=== PATIENT | female | born 1990 | race Caucasian/White ===

== ENCOUNTER → 2016-11-19 | Outpatient (REF) | payer BC ==
[2016-11-19 13:33] LABS: BASO % 0.3 % (0.0-1.0); EOS # 0.1 10^3/uL (0.0-0.50); IMMATURE GRANULOCYTE % 0.6 % (0-0); LYMPH # 1.8 10^3/uL (1.5-6.5); LYMPH % 14.5 % (24.0-44.0); MEAN CORPUSCULAR HEMOGLOBIN 32.4 pg (27.0-33.0); MEAN CORPUSCULAR HGB CONC 33.3 g/dl (32.0-36.5); MEAN CORPUSCULAR VOLUME 97.1 fl (80.0-96.0); MONO # 0.6 10^3/uL (0.0-0.8); MONO % 4.7 % (0.0-5.0); NEUTROPHILS # 9.8 10^3/uL (1.8-7.7); NEUTROPHILS % 78.9 % (36.0-66.0); PLATELET COUNT, AUTOMATED 267 10^3/uL (150-450); RED CELL DISTRIBUTION WIDTH 13.2 % (11.5-14.5); WHITE BLOOD COUNT 12.4 10^3/uL (4.0-10.0)
[2016-11-19 13:35] LABS: ADD MANUAL DIFFER NO; DIFF SLIDE NUMBER 223
[2016-11-19 13:42] LABS: HBsAg Prenatal NEGATIVE (NEGATIVE)
== END ==
LOC: M LABDRWAD 12:25
PROVIDERS: ATTEND Advanced Practice Midwife
DX: Z34.81 Encounter for supervision of other normal pregnancy, first trimester (principal)

== ENCOUNTER → 2016-11-22 | Outpatient (REF) | payer BC | LOC: M LAB REF 16:54 | PROVIDERS: ATTEND Advanced Practice Midwife | DX: Z34.81 Encounter for supervision of other normal pregnancy, first trimester (principal) ==

== ENCOUNTER → 2017-01-16 | Outpatient (REF) | payer BC | LOC: M LAB REF 13:02 | PROVIDERS: ATTEND Advanced Practice Midwife | DX: Z36.89 Encounter for other specified antenatal screening (principal); Z3A.00 Weeks of gestation of pregnancy not specified ==

== ENCOUNTER → 2017-01-24 | Outpatient (CLI) | payer BC ==
--- NOTE | 2017-01-24 16:25 | REP ---
OB ULTRASOUND: Real-time sonographic evaluation of the gravid uterus is performed. There is a single living intrauterine gestation. The estimated gestational age is 18 weeks 2 days with EDC 06/25/2017. Today's measurements indicate appropriate growth. BPD 42 mm = 18 weeks 5 days, 61st percentile HC 155 mm = 18 weeks 3 days, 54th percentile AC 140 mm = 19 weeks 3 days, 73rd percentile FL 26 mm = 17 weeks 6 days, 37th percentile HC/AC ratio 1.11 within normal range. Estimated weight 251 grams, 60th percentile. Cervix closed and measures 4.1 cm in length. heart rate 149 beats per minute. SEEN/GROSSLY UNREMARKABLE Lateral ventricles yes Posterior fossa yes Upper lip yes Four-chamber heart yes LVOT yes RVOT yes Stomach yes Cord insertion yes Three vessel cord yes Kidneys yes Bladder yes Spine yes position: Breech. Placenta: Anterior and grade 0 with no previa or abruption. Amniotic fluid: Within normal limits. Signed by Steve Chase MD 01/24/2017 04:58 P
== END ==
LOC: M RAD 13:58
PROVIDERS: ATTEND Advanced Practice Midwife
DX: Z36.2 Encounter for other antenatal screening follow-up (principal)

== ENCOUNTER → 2017-03-21 | Outpatient (CLI) | payer BC ==
[2017-03-21 10:13] LABS: HEMOGLOBIN 10.5 g/dl (12.0-16.0); MEAN CORPUSCULAR HEMOGLOBIN 32.5 pg (27.0-33.0); MEAN CORPUSCULAR HGB CONC 32.8 g/dl (32.0-36.5); MEAN CORPUSCULAR VOLUME 99.1 fl (80.0-96.0); PLATELET COUNT, AUTOMATED 369 10^3/uL (150-450); RED BLOOD COUNT 3.23 10^6/uL (4.00-5.40); RED CELL DISTRIBUTION WIDTH 12.6 % (11.5-14.5); WHITE BLOOD COUNT 15.7 10^3/uL (4.0-10.0)
[2017-03-21 10:18] LABS: GLUCOSE CHALLENGE TEST 1 HOUR 115 MG/DL (LESS THAN 140)
== END ==
LOC: M LAB 08:07
DX: Z36.89 Encounter for other specified antenatal screening (principal); Z3A.00 Weeks of gestation of pregnancy not specified
CPT/HCPCS: 82950

== ENCOUNTER → 2017-06-03 | Outpatient (REF) | payer BC | LOC: M LAB REF 16:50 | DX: Z34.83 Encounter for supervision of other normal pregnancy, third trimester (principal) | CPT/HCPCS: 87081; 87186 ==

== ENCOUNTER 2017-07-01 01:58 | Inpatient (IN) | payer BC ==
[2017-07-01] MEDS ORDERED: PENICILLIN G POTASSIUM 5 MU VIAL As Ordered (02:33)
[2017-07-01] MEDS ORDERED: ONDANSETRON 4MG/2ML VIAL (J2405) As Ordered ×4 (02:48→15:29)
[2017-07-01] MEDS: PENICILLIN G POTASSIUM IV 5 MU in D5W MINI-BAG PLUS 100 ML IV (02:49)
[2017-07-01 02:51] LABS: HEMOGLOBIN 8.8 g/dl (12.0-15.5); MEAN CORPUSCULAR HGB CONC 32.6 g/dl (32.0-36.5); MEAN CORPUSCULAR VOLUME 89.1 fl (80.0-96.0); PLATELET COUNT, AUTOMATED 453 10^3/uL (150-450); RED BLOOD COUNT 3.03 10^6/uL (4.00-5.40); RED CELL DISTRIBUTION WIDTH 14.1 % (11.5-14.5); WHITE BLOOD COUNT 15.5 10^3/uL (4.0-10.0)
[2017-07-01] MEDS: ONDANSETRON 4MG/2ML VIAL (J2405) IV ×2 (03:00→15:29)
[2017-07-01] MEDS ORDERED: FENTANYL 2MCG/ML ROPIVACAINE 0.2% IN 0.9% NACL 200ML IVBAG As Ordered (03:21)
[2017-07-01] MEDS ORDERED: EPIDURAL/PCA KEYS XX (03:40)
[2017-07-01] MEDS ORDERED: diphenhydrAMINE INJ 50MG/ML VIAL (J1200) IV (03:40)
[2017-07-01] MEDS ORDERED: FENTANYL/ROPIVACAINE/NACL BAG 200 ML EPIDURAL (03:40)
[2017-07-01] MEDS ORDERED: NALOXONE INJ 0.4 MG/1 ML VIAL (J2310) IV (03:40)
[2017-07-01] MEDS ORDERED: EPIDURAL COMMENT XX (03:40)
[2017-07-01] MEDS ORDERED: ONDANSETRON 4MG/2ML VIAL (J2405) IV ×3 (03:40→15:30)
[2017-07-01] MEDS ORDERED: REFRIGERATOR IV KEYS XX (03:40)
[2017-07-01] MEDS ORDERED: TERBUTALINE SULFATE 1 MG/ML VIAL (J3105) As Ordered (04:17)
[2017-07-01] MEDS: TERBUTALINE SULFATE 1 MG/ML VIAL (J3105) SC (04:26)
[2017-07-01] MEDS ORDERED: ePHEDrine SULFATE 25 MG/5 ML(5MG/ML) SYRINGE As Ordered ×2 (04:32→13:21)
[2017-07-01] MEDS: ePHEDrine SULFATE 25 MG/5 ML(5MG/ML) SYRINGE IV ×2 (05:55→06:37)
[2017-07-01] MEDS: OXYTOCIN DRIP 30 UNITS in APPROPRIATE DILUENT 1 EA IV ×2 (05:56→18:26)
[2017-07-01] MEDS: LACTATED RINGER'S 1000 ML IV ×2 (05:57→18:07)
[2017-07-01] MEDS: PENICILLIN G POTASSIUM IV 2.5 MU in APPROPRIATE DILUENT 1 EA IV (06:37)
[2017-07-01] MEDS: LR 1,000 ML IV ×6 (07:30→18:10)
[2017-07-01] MEDS ORDERED: ceFAZolin 2 GM/D5W 50 ML IV BAG (J0690 PER 500MG) As Ordered (09:41)
[2017-07-01] MEDS ORDERED: BICITRA 30ML SOLN UDC As Ordered (09:41)
[2017-07-01] MEDS ORDERED: MORPHINE PRES-FREE INJ 10 MG/10 ML VIAL (J2274) As Ordered (10:15)
[2017-07-01] MEDS ORDERED: OXYTOCIN INJ 10 UNITS/ML VIAL (J2590) As Ordered ×7 (10:15→13:17)
[2017-07-01] MEDS ORDERED: KETOROLAC 60 MG/2 ML VIAL (J1885) As Ordered (10:21)
[2017-07-01] MEDS ORDERED: dexameTHASONE 4 MG/ML 1ML VIAL (J1100) As Ordered (10:21)
[2017-07-01] MEDS ORDERED: fentaNYL 100 MCG/2 ML INJECTION (J3010) As Ordered (10:26)
[2017-07-01] MEDS ORDERED: SODIUM BICARBONATE 8.4% INJ 50MEQ 50 ML VIAL As Ordered (10:27)
[2017-07-01] MEDS ORDERED: LIDOCAINE 2% W/EPIN INJ 20ML **PRES FREE As Ordered (10:27)
[2017-07-01 10:48] LABS: CORD GAS ABE V -2.6; CORD GAS HCO3 V 24.3 MEQ/L; CORD GAS PH V 7.313 UNITS; CORD GAS PO2 V 29.3 mmHg; CORD GAS SBC V 21.5 MEQ/L; CORD GAS TCO2 V 25.8 MEQ/L
[2017-07-01 10:51] LABS: CORD GAS ABE A -4.8; CORD GAS HCO3 A 24.2 MEQ/L; CORD GAS O2 SAT A 45.5 %; CORD GAS PCO2 A 58.6 mmHg; CORD GAS PH A 7.233 UNITS; CORD GAS PO2 A 20.2 mmHg; CORD GAS SBC A 19.1 MEQ/L
[2017-07-01] MEDS ORDERED: PHENYLephrine HCL 500 MCG/5 ML (100MCG/ML) SYRINGE (J2370) As Ordered ×4 (11:00→13:21)
[2017-07-01] MEDS ORDERED: miSOPROStol 200 MCG TAB (S0191) As Ordered (11:21)
[2017-07-01] MEDS ORDERED: METOCLOPRAMIDE INJ 10MG/2ML VIAL (J2765) IV (11:30)
[2017-07-01] MEDS ORDERED: fentaNYL 100 MCG/2 ML INJECTION (J3010) IV ×2 (11:30→15:30)
[2017-07-01] MEDS ORDERED: OXYTOCIN 30 UNITS IN 0.9% NaCl 500ML IV BAG (J2590) As Ordered (11:37)
[2017-07-01 11:42] LABS: IMMEDIATE SPIN CROSSMATCH 1 4
[2017-07-01 11:42] LABS: IMMEDIATE SPIN CROSSMATCH 1
[2017-07-01] MEDS: ceFAZolin 2 GM/D5W 50 ML IV BAG (J0690 PER 500MG) As Ordered (12:00)
[2017-07-01] MEDS ORDERED: CARBOPROST TROMETHAMINE 250 MCG/ML AMP As Ordered ×2 (12:02→12:50)
[2017-07-01] MEDS ORDERED: METHYLERGONOVINE MALEATE 0.2 MG/ML VIAL (J2210) As Ordered (12:02)
[2017-07-01] MEDS: CARBOPROST TROMETHAMINE 250 MCG/ML AMP As Ordered (12:21)
[2017-07-01 12:26] LABS: TYPE AND SCREEN 1
[2017-07-01] MEDS: UNASYN 1.5 GM VIAL As Ordered (12:26)
[2017-07-01] MEDS: METHYLERGONOVINE MALEATE 0.2 MG/ML VIAL (J2210) As Ordered (12:35)
[2017-07-01] MEDS: METHYLERGONOVINE MALEATE 0.2 MG/ML VIAL (J2210) IM (12:35)
[2017-07-01 12:48] LABS: HEMATOCRIT 18.6 % (36.0-47.0); MEAN CORPUSCULAR HEMOGLOBIN 29.7 pg (27.0-33.0); MEAN CORPUSCULAR HGB CONC 32.3 g/dl (32.0-36.5); MEAN CORPUSCULAR VOLUME 92.1 fl (80.0-96.0); PLATELET COUNT, AUTOMATED 305 10^3/uL (150-450); RED BLOOD COUNT 2.02 10^6/uL (4.00-5.40); RED CELL DISTRIBUTION WIDTH 14.4 % (11.5-14.5); WHITE BLOOD COUNT 20.3 10^3/uL (4.0-10.0)
[2017-07-01 12:50] LABS: INR 1.05; PARTIAL THROMBOPLASTIN TIME 24.8 SECONDS (26.8-37.9); PROTHROMBIN TIME 13.8 SECONDS (12.4-14.5)
[2017-07-01] MEDS ORDERED: fentaNYL 250 MCG/5 ML INJECTION (J3010) As Ordered (13:00)
[2017-07-01] MEDS ORDERED: PROPOFOL 200 MG/20 ML VIAL As Ordered (13:00)
[2017-07-01] MEDS ORDERED: ROCURONIUM BROMIDE 50 MG/5 ML VIAL As Ordered (13:00)
[2017-07-01] MEDS ORDERED: SUCCINYLCHOLINE 100 MG/5 ML SYRINGE (J0330) As Ordered (13:00)
[2017-07-01] MEDS ORDERED: MIDAZOLAM INJ 2 MG/2 ML VIAL (J2250) As Ordered ×2 (13:00→13:56)
[2017-07-01] MEDS ORDERED: LIDOCAINE 2% INJ 100 MG/5 ML SDV (FOR ANES.) As Ordered (13:00)
[2017-07-01] MEDS ORDERED: VASOPRESSIN INJ 20 UNITS/ML VIAL As Ordered (13:00)
[2017-07-01] MEDS ORDERED: TRANEXAMIC ACID 100 MG/ML 10ML VIAL As Ordered (13:07)
[2017-07-01] MEDS ORDERED: GLYCOPYRROLATE INJ 0.2 MG/ML 2 ML VIAL As Ordered ×2 (13:36)
[2017-07-01] MEDS ORDERED: NEOSTIGMINE 10 MG/10 ML VIAL (J2710) As Ordered (13:36)
[2017-07-01 14:00] LABS: iSTAT CA++ 4.2 MG/DL (4.5-5.3)
[2017-07-01] MEDS ORDERED: MEPERIDINE INJ 25 MG/ML VIAL (J2175) As Ordered (15:09)
[2017-07-01] MEDS: MEPERIDINE INJ 25 MG/ML VIAL (J2175) IV ×2 (15:09→15:20)
[2017-07-01] MEDS ORDERED: MEPERIDINE INJ 25 MG/ML VIAL (J2175) IV (15:30)
[2017-07-01] MEDS ORDERED: PERCOCET 5MG/325MG TAB PO (16:00)
[2017-07-01] MEDS ORDERED: METOCLOPRAMIDE INJ 10MG/2ML VIAL (J2765) As Ordered (16:07)
[2017-07-01] MEDS: METOCLOPRAMIDE INJ 10MG/2ML VIAL (J2765) IV (16:07)
[2017-07-01] MEDS ORDERED: MORPHINE 4 MG/ML 1ML VIAL/SYRINGE (J2270) IV (16:15)
[2017-07-01] MEDS ORDERED: PROMETHAZINE INJ 25 MG/ML VIAL (J2550) IV (16:15)
[2017-07-01 16:23] LABS: HEMATOCRIT 27.2 % (36.0-47.0); HEMOGLOBIN 9.4 g/dl (12.0-15.5); MEAN CORPUSCULAR HEMOGLOBIN 31.4 pg (27.0-33.0); MEAN CORPUSCULAR HGB CONC 34.6 g/dl (32.0-36.5); PLATELET COUNT, AUTOMATED 150 10^3/uL (150-450); RED BLOOD COUNT 2.99 10^6/uL (4.00-5.40); RED CELL DISTRIBUTION WIDTH 13.5 % (11.5-14.5)
[2017-07-01 16:34] LABS: INR 1.13; PROTHROMBIN TIME 14.7 SECONDS (12.4-14.5)
[2017-07-01 16:35] LABS: FIBRINOGEN 264 MG/DL (221-452)
[2017-07-01 16:39] LABS: POS COUNT POS FLAG
[2017-07-01 16:41] LABS: WHITE BLOOD COUNT 37.8 10^3/uL (4.0-10.0)
[2017-07-01] MEDS: BICITRA 30ML SOLN UDC PO (18:08)
[2017-07-01] MEDS: AMPICILLIN SOD/SULBACTAM SOD 3 GM in D5W MINI-BAG PLUS 100 ML IV ×2 (18:08→18:30)
[2017-07-01] MEDS: CARBOPROST TROMETHAMINE 250 MCG/ML AMP IM (18:09)
[2017-07-01] MEDS: miSOPROStol 200 MCG TAB (S0191) PR (18:09)
[2017-07-01 18:27] LABS: HEMATOCRIT 21.5 % (36.0-47.0); HEMOGLOBIN 7.6 g/dl (12.0-15.5); MEAN CORPUSCULAR HEMOGLOBIN 31.8 pg (27.0-33.0); MEAN CORPUSCULAR HGB CONC 35.3 g/dl (32.0-36.5); PLATELET COUNT, AUTOMATED 125 10^3/uL (150-450); RED BLOOD COUNT 2.39 10^6/uL (4.00-5.40); RED CELL DISTRIBUTION WIDTH 13.5 % (11.5-14.5); WHITE BLOOD COUNT 29.7 10^3/uL (4.0-10.0)
[2017-07-01] MEDS: METHYLERGONOVINE MALEATE 0.2 MG TAB PO (18:27)
[2017-07-01] MEDS: ACETAMINOPHEN 500 MG TAB PO (19:30)
[2017-07-01] MEDS: diphenhydrAMINE INJ 50MG/ML VIAL (J1200) IV (19:30)
[2017-07-01 21:31] LABS: IMMEDIATE SPIN CROSSMATCH 1 4
[2017-07-01] MEDS: DOCUSATE SODIUM 100 MG CAP PO (21:52)
[2017-07-02] MEDS: LR 1,000 ML IV (00:16)
[2017-07-02] MEDS: AMPICILLIN SOD/SULBACTAM SOD 3 GM in D5W MINI-BAG PLUS 100 ML IV ×4 (00:18→18:06)
[2017-07-02] MEDS: METHYLERGONOVINE MALEATE 0.2 MG TAB PO ×4 (00:19→18:06)
[2017-07-02] MEDS: PERCOCET 5MG/325MG TAB PO ×6 (03:32→23:01)
[2017-07-02 05:00] LABS: HEMATOCRIT 25.4 % (36.0-47.0); HEMOGLOBIN 8.9 g/dl (12.0-15.5); MEAN CORPUSCULAR HEMOGLOBIN 30.3 pg (27.0-33.0); MEAN CORPUSCULAR VOLUME 86.4 fl (80.0-96.0); PLATELET COUNT, AUTOMATED 120 10^3/uL (150-450); RED BLOOD COUNT 2.94 10^6/uL (4.00-5.40); RED CELL DISTRIBUTION WIDTH 13.9 % (11.5-14.5); WHITE BLOOD COUNT 24.7 10^3/uL (4.0-10.0)
[2017-07-02 08:26] LABS: ALKALINE PHOSPHATASE 94 U/L (45-117); ALT/SGPT 8 U/L (12-78); ANION GAP 8 MEQ/L (8-16); AST/SGOT 36 U/L (7-37); BILIRUBIN,TOTAL 0.3 MG/DL (0.2-1.0); BLOOD UREA NITROGEN 5 MG/DL (7-18); CALCIUM LEVEL 6.9 MG/DL (8.5-10.1); CARBON DIOXIDE LEVEL 24 MEQ/L (21-32); CHLORIDE LEVEL 107 MEQ/L (98-107); CREATININE FOR GFR 0.66 MG/DL (0.55-1.30); GLOMERULAR FILTRATION RATE > 60.0 (>60); GLUCOSE, FASTING 90 MG/DL (70-100); POTASSIUM SERUM 4.1 MEQ/L (3.5-5.1); SODIUM LEVEL 139 MEQ/L (136-145)
[2017-07-02 08:27] LABS: ALBUMIN 1.6 GM/DL (3.2-5.2); TOTAL PROTEIN 3.9 GM/DL (6.4-8.2)
[2017-07-02] MEDS: DOCUSATE SODIUM 100 MG CAP PO ×2 (08:47→20:34)
[2017-07-02] MEDS ORDERED: SLF 3 ML SYR IV (17:45)
[2017-07-02] MEDS: SLF 3 ML SYR IV (20:34)
[2017-07-02] MEDS: diphenhydrAMINE INJ 50MG/ML VIAL (J1200) IV (23:01)
[2017-07-03] MEDS: AMPICILLIN SOD/SULBACTAM SOD 3 GM in D5W MINI-BAG PLUS 100 ML IV ×2 (00:11→06:21)
[2017-07-03] MEDS: PERCOCET 5MG/325MG TAB PO ×5 (04:40→22:46)
[2017-07-03] MEDS: SLF 3 ML SYR IV (06:21)
[2017-07-03 07:10] LABS: HEMATOCRIT 22.1 % (36.0-47.0); HEMOGLOBIN 7.7 g/dl (12.0-15.5); MEAN CORPUSCULAR HEMOGLOBIN 30.7 pg (27.0-33.0); MEAN CORPUSCULAR HGB CONC 34.8 g/dl (32.0-36.5); PLATELET COUNT, AUTOMATED 142 10^3/uL (150-450); RED BLOOD COUNT 2.51 10^6/uL (4.00-5.40); RED CELL DISTRIBUTION WIDTH 14.6 % (11.5-14.5); WHITE BLOOD COUNT 21.6 10^3/uL (4.0-10.0)
[2017-07-03] MEDS: DOCUSATE SODIUM 100 MG CAP PO ×2 (08:33→20:33)
[2017-07-03 12:45] LABS: iSTAT CA++ 4.3 MG/DL (4.5-5.3)
[2017-07-04] MEDS: PERCOCET 5MG/325MG TAB PO ×3 (03:00→12:32)
[2017-07-04 07:09] LABS: HEMATOCRIT 23.8 % (36.0-47.0); HEMOGLOBIN 8.2 g/dl (12.0-15.5); MEAN CORPUSCULAR HEMOGLOBIN 30.9 pg (27.0-33.0); MEAN CORPUSCULAR HGB CONC 34.5 g/dl (32.0-36.5); MEAN CORPUSCULAR VOLUME 89.8 fl (80.0-96.0); PLATELET COUNT, AUTOMATED 224 10^3/uL (150-450); RED BLOOD COUNT 2.65 10^6/uL (4.00-5.40); RED CELL DISTRIBUTION WIDTH 14.6 % (11.5-14.5); WHITE BLOOD COUNT 15.5 10^3/uL (4.0-10.0)
[2017-07-04] MEDS: DOCUSATE SODIUM 100 MG CAP PO (08:24)
[2017-07-04] MEDS: ADACEL/BOOSTRIX VACCINE (DIPHTH/PERTUSS/ACELL/TETANUS)0.5ML SYR (90715) IM (08:25)
== END 2017-07-04 15:00 | disposition home or self-care (01) | DRG 540 ==
LOC: M LDO 01:58 → M OBS 07-03 01:44 → M LDI 02:31 → M OBS 15:00 → M ICU 17:00
PROVIDERS: Specialist
PROC: 10D00Z1 Extraction of Products of Conception, Low, Open Approach (ICD-10-PCS; principal; 2017-07-01 10:00)
PROC: 0W3N0ZZ Control Bleeding in Female Perineum, Open Approach (ICD-10-PCS; 2017-07-01 10:00)
PROC: 0UH Female Reproductive System, Insertion (ICD-10-PCS; 2017-07-01 10:00)
PROC: 30253N1 (ICD-10-PCS; 2017-07-01 10:00)
PROC: 30253K1 (ICD-10-PCS; 2017-07-01 10:00)
DX: O48.0 Post-term pregnancy (principal); O72.1 Other immediate postpartum hemorrhage; Z3A.40 40 weeks gestation of pregnancy; O99.824 Streptococcus B carrier state complicating childbirth; O76 Abnormality in fetal heart rate and rhythm complicating labor and delivery; Z37.0 Single live birth

== ENCOUNTER → 2018-03-11 | Outpatient (CLI) | payer BC ==
[~2018-03-11] MED LIST: COLA100C5 PO; OXYC1TAB23 PO
[2018-03-11 19:55] LABS: BASO % 0.4 % (0.0-1.0); EOS # 0.1 10^3/uL (0.0-0.50); EOS % 1.1 % (0.0-3.0); HEMATOCRIT 38.2 % (36.0-47.0); HEMOGLOBIN 12.4 g/dl (12.0-15.5); LYMPH # 2.6 10^3/uL (1.5-4.5); LYMPH % 25.8 % (24.0-44.0); MEAN CORPUSCULAR HEMOGLOBIN 30.5 pg (27.0-33.0); MEAN CORPUSCULAR HGB CONC 32.5 g/dl (32.0-36.5); MEAN CORPUSCULAR VOLUME 94.1 fl (80.0-96.0); MONO # 0.6 10^3/uL (0.0-0.8); NEUTROPHILS # 6.7 10^3/uL (1.8-7.7); NEUTROPHILS % 66.3 % (36.0-66.0); PLATELET COUNT, AUTOMATED 314 10^3/uL (150-450); RED BLOOD COUNT 4.06 10^6/uL (4.00-5.40); WHITE BLOOD COUNT 10.1 10^3/uL (4.0-10.0)
[2018-03-11 20:07] LABS: FREE T4 0.94 NG/DL (0.76-1.46); THYROID STIMULATING HORMONE 1.14 uIU/ML (0.358-3.740)
== END ==
LOC: M LABDRWAD 13:45
PROVIDERS: ATTEND Physician Assistant Medical
DX: R53.83 Other fatigue (principal)

== ENCOUNTER → 2018-06-10 | Outpatient (CLI) | payer BC, MEDICAID ==
[2018-06-10 20:12] LABS: BASO % 0.3 % (0.0-1.0); EOS # 0.1 10^3/uL (0.0-0.50); EOS % 1.1 % (0.0-3.0); HEMATOCRIT 37.5 % (36.0-47.0); HEMOGLOBIN 12.2 g/dl (12.0-15.5); LYMPH # 2.8 10^3/uL (1.5-4.5); LYMPH % 29.1 % (24.0-44.0); MEAN CORPUSCULAR HEMOGLOBIN 30.4 pg (27.0-33.0); MEAN CORPUSCULAR HGB CONC 32.5 g/dl (32.0-36.5); MEAN CORPUSCULAR VOLUME 93.5 fl (80.0-96.0); MONO # 0.6 10^3/uL (0.0-0.8); MONO % 6.4 % (0.0-5.0); NEUTROPHILS # 6.1 10^3/uL (1.8-7.7); NEUTROPHILS % 62.9 % (36.0-66.0); PLATELET COUNT, AUTOMATED 285 10^3/uL (150-450); RED BLOOD COUNT 4.01 10^6/uL (4.00-5.40); WHITE BLOOD COUNT 9.7 10^3/uL (4.0-10.0)
[2018-06-10 22:01] LABS: CHLAMYDIA DNA AMPLIFICATION NEGATIVE (NEGATIVE); GC DNA AMPLIFICATION NEGATIVE (NEGATIVE)
[2018-06-11 13:22] LABS: HEPATITIS C VIRUS ABY INDEX < 0.0 INDEX (<0.8); HIV 1&2 SCREEN CENTAUR NEGATIVE (NEGATIVE); RUBELLA IgG QUALITATIVE IMMUNE (IMMUNE)
== END ==
LOC: M LABDRWAD 17:25
PROVIDERS: ATTEND Advanced Practice Midwife
DX: Z34.81 Encounter for supervision of other normal pregnancy, first trimester (principal); Z3A.10 10 weeks gestation of pregnancy; Z36.89 Encounter for other specified antenatal screening

== ENCOUNTER → 2018-08-04 | Outpatient (CLI) | payer MEDICAID, OTHER ==
--- NOTE | 2018-08-04 10:14 | REP ---
Clinical: Anatomical evaluation. Comparison: None . Findings: Examination demonstrates a single live intrauterine in variable presentation. motion is identified by technologist. Placenta is noted posterior and grade zero without evidence for placenta previa or abruption. Amniotic fluid volume is normal. Cervix measures 3.5 cm in length and appears closed. No evidence for nuchal cord. Gestational age by LMP 20 weeks 4 days with JJ 12/18/2018 . Gestational age by current measurements 20 weeks 2 days with JJ 12/20/2018 . FHR equals 146 beats per minute. BPD 4.6 cm 20 weeks 0 days HC 16.7 cm 19 weeks 3 days AC 15.7 cm 20 weeks 6 days FL 3.2 cm 20 weeks 0 days HL 3.0 cm 20 weeks 0 days HC/AC ratio 1.06 Estimated weight 348 grams ( 38 percentile). Anatomical assessment demonstrates normal structures including cranium, choroid plexus, cavum, cerebellum/posterior fossa, facial features, lungs, four-chamber heart/ventricular outflow tracts, diaphragm, stomach, cord insertion/three-vessel cord, kidneys/bladder, spine, and extremities. Impression: Single live intrauterine in variable presentation demonstrating appropriate interval growth. Anatomical assessment is complete and normal. No gross abnormalities are identified. Electronically Signed by Jamison Taylor MD 08/04/2018 10:04 A
== END ==
LOC: M RAD 08:49
PROVIDERS: ATTEND Advanced Practice Midwife
DX: Z34.82 Encounter for supervision of other normal pregnancy, second trimester (principal); Z3A.20 20 weeks gestation of pregnancy

== ENCOUNTER → 2018-09-09 | Outpatient (CLI) | payer OTHER ==
[2018-09-09 11:23] LABS: BASO % 0.2 % (0.0-1.0); EOS # 0.1 10^3/uL (0.0-0.50); EOS % 0.7 % (0.0-3.0); HEMATOCRIT 29.7 % (36.0-47.0); HEMOGLOBIN 9.7 g/dl (12.0-15.5); LYMPH # 1.9 10^3/uL (1.5-4.5); LYMPH % 14.2 % (24.0-44.0); MEAN CORPUSCULAR HEMOGLOBIN 31.7 pg (27.0-33.0); MEAN CORPUSCULAR HGB CONC 32.7 g/dl (32.0-36.5); MEAN CORPUSCULAR VOLUME 97.1 fl (80.0-96.0); MONO # 0.5 10^3/uL (0.0-0.8); MONO % 3.6 % (0.0-5.0); NEUTROPHILS # 10.8 10^3/uL (1.8-7.7); NEUTROPHILS % 80.5 % (36.0-66.0); PLATELET COUNT, AUTOMATED 305 10^3/uL (150-450); RED BLOOD COUNT 3.06 10^6/uL (4.00-5.40); WHITE BLOOD COUNT 13.4 10^3/uL (4.0-10.0)
== END ==
LOC: M LAB 09:51
PROVIDERS: ATTEND Specialist
DX: Z34.82 Encounter for supervision of other normal pregnancy, second trimester (principal)

== ENCOUNTER → 2018-11-17 | Outpatient (REF) | payer OTHER ==
[~2018-11-17] MED LIST changes: +DOCU100C16 PO; +IBUP80TA PO; +IRON65TA2 PO; +PERCOCET PO; +PREN1TAB18 PO
== END ==
LOC: M LAB REF 17:14
PROVIDERS: ATTEND Advanced Practice Midwife
DX: Z36.85 Encounter for antenatal screening for Streptococcus B (principal); O34.219 Maternal care for unspecified type scar from previous cesarean delivery; Z3A.00 Weeks of gestation of pregnancy not specified

== ENCOUNTER → 2018-11-20 | Outpatient (REF) | payer OTHER ==
[~2018-11-20] MED LIST changes: -DOCU100C16 PO; -IBUP80TA PO; -PERCOCET PO
[2018-11-20 17:57] LABS: HEMATOCRIT 29.6 % (36.0-47.0); HEMOGLOBIN 9.5 g/dl (12.0-15.5); MEAN CORPUSCULAR HEMOGLOBIN 30.9 pg (27.0-33.0); MEAN CORPUSCULAR HGB CONC 32.1 g/dl (32.0-36.5); MEAN CORPUSCULAR VOLUME 96.4 fl (80.0-96.0); PLATELET COUNT, AUTOMATED 306 10^3/uL (150-450); RED BLOOD COUNT 3.07 10^6/uL (4.00-5.40); WHITE BLOOD COUNT 16.4 10^3/uL (4.0-10.0)
== END ==
LOC: M LABDRWAD 17:25
PROVIDERS: ATTEND Advanced Practice Midwife
DX: O34.219 Maternal care for unspecified type scar from previous cesarean delivery (principal); Z3A.00 Weeks of gestation of pregnancy not specified

== ENCOUNTER 2018-12-08 05:42 | Inpatient (IN) | payer BC, OTHER ==
[2018-12-08] VITALS (7 sets, daily range): BP systolic 103–125; BP diastolic 51–66
[~2018-12-08] VITALS: Ht 157.5 cm; Wt 62.4 kg
[2018-12-08] MEDS ORDERED: LR 1,000 ML IV ONE (06:00)
[2018-12-08] MEDS ORDERED: ceFAZolin SOD 2 GM in IV 1 EA IV ONE (06:00)
[2018-12-08] MEDS ORDERED: LR 1,000 ML IV SCH (06:00)
[2018-12-08] MEDS ORDERED: BICITRA 30ML SOLN UDC PO ONE (06:00)
[2018-12-08 06:45] LABS: HEMATOCRIT 29.4 % (36.0-47.0); HEMOGLOBIN 9.5 g/dl (12.0-15.5); MEAN CORPUSCULAR HEMOGLOBIN 29.5 pg (27.0-33.0); MEAN CORPUSCULAR HGB CONC 32.3 g/dl (32.0-36.5); MEAN CORPUSCULAR VOLUME 91.3 fl (80.0-96.0); PLATELET COUNT, AUTOMATED 343 10^3/uL (150-450); RED BLOOD COUNT 3.22 10^6/uL (4.00-5.40); WHITE BLOOD COUNT 14.4 10^3/uL (4.0-10.0)
[2018-12-08] MEDS ORDERED: OXYTOCIN INJ 10 UNITS/ML VIAL (J2590) As Ordered ONE (07:15)
[2018-12-08] MEDS ORDERED: MORPHINE PRES-FREE INJ 10 MG/10 ML VIAL (J2274) As Ordered ONE (07:18)
[2018-12-08] MEDS ORDERED: NALBUPHINE HCL 10 MG/ML AMP (J2300) IV PRN (07:42)
[2018-12-08] MEDS ORDERED: METOCLOPRAMIDE INJ 10MG/2ML VIAL (J2765) IV PRN ×2 (07:42→09:30)
[2018-12-08] MEDS ORDERED: diphenhydrAMINE INJ 50MG/ML VIAL (J1200) IV PRN (07:42)
[2018-12-08] MEDS ORDERED: ONDANSETRON 4MG/2ML VIAL (J2405) IV PRN ×2 (07:42→09:30)
[2018-12-08] MEDS ORDERED: NALOXONE INJ 0.4 MG/1 ML VIAL (J2310) IV PRN ×2 (07:42)
[2018-12-08] MEDS ORDERED: PHENYLephrine HCL 500 MCG/5 ML (100MCG/ML) SYRINGE (J2370) As Ordered ONE ×2 (07:48→08:02)
[2018-12-08] MEDS ORDERED: ONDANSETRON 4MG/2ML VIAL (J2405) As Ordered ONE (07:48)
[2018-12-08] MEDS ORDERED: KETOROLAC 60 MG/2 ML VIAL (J1885) As Ordered ONE (07:48)
[2018-12-08] MEDS ORDERED: miSOPROStol 200 MCG TAB (S0191) As Ordered ONE (08:08)
[2018-12-08] MEDS ORDERED: MEPERIDINE INJ 25 MG/ML VIAL (J2175) As Ordered ONE ×2 (09:24→09:48)
[2018-12-08] MEDS: MEPERIDINE INJ 25 MG/ML VIAL (J2175) IV PRN ×2 (09:27→09:51)
[2018-12-08] MEDS ORDERED: KETOROLAC 30 MG/ML VIAL (J1885) IV PRN (09:30)
[2018-12-08] MEDS ORDERED: HYDROMORPHONE HCL 0.5 MG/ 0.5 ML SYRINGE (J1170 PER 1) IV PRN (09:30)
[2018-12-08] MEDS ORDERED: PERCOCET 5MG/325MG TAB PO PRN ×2 (09:30→09:45)
[2018-12-08] MEDS ORDERED: fentaNYL 100 MCG/2 ML INJECTION (J3010) IV PRN (09:30)
[2018-12-08] MEDS: LR 1,000 ML IV SCH ×2 (09:39→16:19)
[2018-12-08] MEDS ORDERED: OXYTOCIN DRIP 30 UNITS in IV 1 EA IV SCH (09:39)
[2018-12-08] MEDS ORDERED: MEASLES,MUMPS,RUBELLA VACCINE INJ (MMR-II) (90707) SC SCH (09:45)
[2018-12-08] MEDS ORDERED: RHOGAM 300 MCG (1500 IU) INJ (J2790) IM SCH (09:45)
[2018-12-08] MEDS ORDERED: MOM 30ML SUSPENSION UDC PO PRN (09:45)
[2018-12-08] MEDS ORDERED: OXYTOCIN 30 UNITS IN 0.9% NaCl 500ML IV BAG (J2590) As Ordered ONE (10:19)
--- NOTE | 2018-12-08 10:20 | RO ---
DATE OF PROCEDURE: 12/08/2018 PREOPERATIVE DIAGNOSES: 1. History of primary section for repeat section. 2. Intrauterine at 39 weeks. POSTOPERATIVE DIAGNOSES: 1. History of primary section for repeat section. 2. Intrauterine at 39 weeks. PROCEDURE PERFORMED: Repeat section. SURGEON: Xenia Trujillo MD TRANSPORTATION MECHANIC: Kelsey Seymour CNM ANESTHESIA: Spinal. ESTIMATED BLOOD LOSS: 500 mL. INTRAVENOUS FLUIDS: 800 mL of lactated Ringer solution. URINE OUTPUT: 100 mL. PREOPERATIVE ANTIBIOTICS: 2 grams of Ancef. OPERATIVE FINDINGS: Live born female infant. score 9 and 9. Weight was 6 pounds 11 ounces or 3020 grams. DESCRIPTION OF OPERATION: After informed consent was obtained and written consent was reviewed, the patient brought to the operating room where spinal anesthesia was placed. She was then placed in supine position with a left lateral tilt. Valle catheter was placed and set to gravity. She was then prepped and draped in a normal sterile fashion. A time-out in operating room was then performed identifying the patient, procedure to be performed, as well as drug allergies. A Pfannenstiel skin incision was then made along the previous skin incision. This was carried down to underlying rectus fascia. The fascia was then scored and this was extended bilaterally. The fascia was then dissected off the underlying rectus muscles both superiorly, inferiorly. The rectus muscles were then in midline. Peritoneum was then entered sharply. The vesicouterine peritoneum was then identified. It was tented and excised to create a bladder flap. The bladder blade was then placed to retract back the bladder. A curvilinear incision was then made along the lower uterine segment. Amniotomy was then performed productive of clear fluid. The head was brought to level of incision atraumatically and this was delivered along with shoulders and corpus. The cord was clamped times two and was cut and was taken to the warmer with a good cry. The placenta was then delivered grossly intact. The uterus was then exteriorized and cleared of all clots and debris. Uterine incision was then closed in two layers using #0 Vicryl first in a running locking fashion followed by a second layer for imbrication in a running nonlocking fashion. [id number] stitch placed for hemostasis. The abdomen was then suctioned. The uterus was returned to patient's abdomen. It was reinspected and noted to be hemostatic. The anterior peritoneum was then reapproximated with #3-0 Vicryl. Rectus muscles were reapproximated with #3-0 Vicryl. The fascia was closed with #0 Vicryl in a running nonlocking fashion. The subcutaneous tissue was then suctioned and irrigated. Subcutaneous tissue was reapproximated #3-0 Vicryl. Several subdermal stitches placed with #3-0 Vicryl and the skin was closed with #4-0 Monocryl in subcuticular fashion. Incision was then clean and dry and was dressed. The patient was then taken to recovery in stable condition. Counts correct. Kelsey Seymour my funeral home assistant played an essential role during surgery. She assisted with tissue identification, retraction, delivery of the , as well as wound closure.
[2018-12-08] MEDS ORDERED: miSOPROStol 200 MCG TAB (S0191) PR ONE (10:30)
[2018-12-08] MEDS: KETOROLAC 30 MG/ML VIAL (J1885) IV SCH ×2 (16:20→20:39)
[2018-12-08] MEDS: PERCOCET 5MG/325MG TAB PO PRN ×2 (16:28→20:38)
[2018-12-08] MEDS: DOCUSATE SODIUM 100 MG CAP PO SCH (20:38)
[2018-12-09] MEDS: LR 1,000 ML IV SCH (01:39)
[2018-12-09 02:30] VITALS: BP 101/71
[2018-12-09] MEDS: PERCOCET 5MG/325MG TAB PO PRN ×4 (02:45→18:57)
[2018-12-09] MEDS: KETOROLAC 30 MG/ML VIAL (J1885) IV SCH (02:46)
[2018-12-09 06:00] VITALS: BP 113/71
[2018-12-09 06:27] LABS: HEMATOCRIT 25.4 % (36.0-47.0); HEMOGLOBIN 8.2 g/dl (12.0-15.5); MEAN CORPUSCULAR HGB CONC 32.3 g/dl (32.0-36.5); PLATELET COUNT, AUTOMATED 287 10^3/uL (150-450); RED BLOOD COUNT 2.73 10^6/uL (4.00-5.40); WHITE BLOOD COUNT 14.5 10^3/uL (4.0-10.0)
--- NOTE | 2018-12-09 06:46 | IPNPDOC ---
Progress Note Date of Service: Dec 09, 2018 Day#: 1 Progress Note SUBJECT: Patient is a 28 year old female who is postoperative Day 1 after a repeat section. She has been ambulating, voiding spontaneously without issue and tolerating regular diet. OBJECTIVE: VITAL SIGNS: Within normal limits, afebrile. Alert and oriented times three. Breath sounds clear to auscultation. Heart rate: Regular rate and rhythm, no murmurs, rubs or gallops. Abdomen: Fundus firm at U. Minimal lochia. ASSESSMENT:Day 1 postoperative PLAN: 1. Continue supportive nursing care. 2. Anticipate discharge tomorrow. VS, I&O, 24H, Fishbone Vital Signs/I&O Vital Signs Date Time Temp Pulse Resp B/P (MAP) Pulse Ox O2 Delivery O2 Flow Rate FiO2 12/09/18 06:00 97.8 59 18 113/71 (85) Room Air 12/09/18 02:30 100 I&O- Last 24 Hours up to 6 AM 12/09/18 06:00 Intake Total 2200 ml Output Total 3050 ml Balance -850 ml Laboratory Data 24H LABS Laboratory Tests 2 12/09/18 06:16: Nucleated Red Blood Cells % (auto) 0.0 CBC/BMP Laboratory Tests 12/09/18 06:16 BOOKER RIZVI CNM Dec 09, 2018 06:46
[2018-12-09] MEDS: FERROUS SULFATE 325MG TAB PO SCH (09:50)
[2018-12-09] MEDS: PRENATAL VITAMINS CHEWABLE TABLET PO SCH (09:50)
[2018-12-09] MEDS: DOCUSATE SODIUM 100 MG CAP PO SCH ×2 (09:50→21:02)
[2018-12-09 09:59] VITALS: BP 114/77
[2018-12-09 14:12] VITALS: BP 120/59
[2018-12-09] MEDS: IBUPROFEN 800 MG TAB PO SCH ×2 (14:16→18:56)
[2018-12-09 18:07] VITALS: BP 122/59
[2018-12-09 22:33] VITALS: BP 128/60
[2018-12-10] MEDS: PERCOCET 5MG/325MG TAB PO PRN ×2 (02:57→08:10)
[2018-12-10] MEDS: IBUPROFEN 800 MG TAB PO SCH (02:57)
[2018-12-10 06:19] VITALS: BP 135/81
[2018-12-10] MEDS: PRENATAL VITAMINS CHEWABLE TABLET PO SCH (08:09)
[2018-12-10] MEDS: DOCUSATE SODIUM 100 MG CAP PO SCH (08:09)
[2018-12-10] MEDS: FERROUS SULFATE 325MG TAB PO SCH (08:09)
[2018-12-10] MEDS ORDERED: IBUP80TA PO (09:13)
[2018-12-10] MEDS ORDERED: PERCOCET PO (09:13)
[2018-12-10] MEDS ORDERED: DOCU100C16 PO (09:13)
== END 2018-12-10 10:26 | disposition home or self-care (01) | DRG 540 ==
LOC: M LDI 05:42 → M OBS 10:46
PROVIDERS: ADMIT Obstetrics & Gynecology; ATTEND Obstetrics & Gynecology
PROC: 10D00Z1 Extraction of Products of Conception, Low, Open Approach (ICD-10-PCS; principal; 2018-12-08 07:30)
DX: O34.211 Maternal care for low transverse scar from previous cesarean delivery (principal); Z3A.39 39 weeks gestation of pregnancy; Z37.0 Single live birth; O99.824 Streptococcus B carrier state complicating childbirth

== ENCOUNTER → 2019-09-16 | Outpatient (REF) | payer OTHER ==
[~2019-09-16] MED LIST changes: +DOCU100C16 PO; +IBUP80TA PO; +PERCOCET PO
== END ==
LOC: M SFHCWAGY 10:11
PROVIDERS: ATTEND Obstetrics & Gynecology
DX: Z34.90 Encounter for supervision of normal pregnancy, unspecified, unspecified trimester (principal); Z3A.00 Weeks of gestation of pregnancy not specified

== ENCOUNTER → 2019-09-16 | Outpatient (CLI) | payer OTHER ==
--- NOTE | 2019-11-06 12:59 | REP ---
OBSTETRIC SONOGRAPHY HISTORY: Dating and viability. Supervision of . This report was delayed due to a protracted episode of network disruption experienced by this facility. FINDINGS: Transabdominal scanning demonstrates a single living intrauterine gestation. The crown-rump length of the embryonic pole is 9.8 mm. This corresponds with a 7 week 1 day gestational age estimate. heart rate is recorded at 135 beats per minute. No extrauterine abnormality is seen. Normal ovaries are observed bilaterally. IMPRESSION: Viable single intrauterine gestation at 7 weeks 1 day by crown-rump length. Estimated date of delivery (JJ) by sonography 05/03/2020. No complication is identified. MTDD
== END ==
LOC: M WHC 05:49
PROVIDERS: ATTEND Obstetrics & Gynecology
DX: Z34.01 Encounter for supervision of normal first pregnancy, first trimester (principal); Z3A.01 Less than 8 weeks gestation of pregnancy

== ENCOUNTER → 2019-09-18 | Outpatient (REF) | payer OTHER | LOC: M SFHCWAGY 11:36 | PROVIDERS: ATTEND Obstetrics & Gynecology | DX: Z34.00 Encounter for supervision of normal first pregnancy, unspecified trimester (principal) ==

== ENCOUNTER → 2019-10-02 | Outpatient (CLI) | payer OTHER ==
[2019-10-02 17:27] LABS: BASO % 0.5 % (0.0-1.0); EOS % 0.2 % (0.0-3.0); HEMATOCRIT 41.4 % (36.0-47.0); HEMOGLOBIN 13.6 g/dl (12.0-15.5); LYMPH # 2.2 10^3/uL (1.5-5.0); LYMPH % 25.2 % (24.0-44.0); MEAN CORPUSCULAR HEMOGLOBIN 30.6 pg (27.0-33.0); MEAN CORPUSCULAR HGB CONC 32.9 g/dl (32.0-36.5); MEAN CORPUSCULAR VOLUME 93.2 fl (80.0-96.0); MONO # 0.6 10^3/uL (0.0-0.8); MONO % 7.2 % (0.0-5.0); NEUTROPHILS # 5.8 10^3/uL (1.5-8.5); NEUTROPHILS % 66.6 % (36.0-66.0); PLATELET COUNT, AUTOMATED 353 10^3/uL (150-450); RED BLOOD COUNT 4.44 10^6/uL (4.00-5.40); WHITE BLOOD COUNT 8.8 10^3/uL (4.0-10.0)
[2019-10-02 18:53] LABS: HEPATITIS C VIRUS ABY INDEX 0.2 INDEX (<0.8); HIV 1&2 SCREEN CENTAUR NEGATIVE (NEGATIVE)
== END ==
LOC: M PLALAB 15:17
PROVIDERS: ATTEND Advanced Practice Midwife
DX: Z34.01 Encounter for supervision of normal first pregnancy, first trimester (principal); Z3A.00 Weeks of gestation of pregnancy not specified

== ENCOUNTER → 2019-10-30 | Outpatient (REF) | payer OTHER ==
[2019-11-03 19:12] LABS: CHLAMYDIA DNA AMPLIFICATION NEGATIVE (NEGATIVE); GC DNA AMPLIFICATION NEGATIVE (NEGATIVE)
== END ==
LOC: M SFHCWAGY 13:05
PROVIDERS: ATTEND Advanced Practice Midwife
DX: Z34.91 Encounter for supervision of normal pregnancy, unspecified, first trimester (principal); Z3A.00 Weeks of gestation of pregnancy not specified

== ENCOUNTER → 2019-12-02 | Outpatient (CLI) | payer OTHER ==
--- NOTE | 2019-12-02 16:36 | REP ---
INDICATION: ANATOMY COMPARISON: None. TECHNIQUE: Transabdominal obstetrical ultrasound with color Doppler evaluation. FINDINGS: Examination demonstrates a single live intrauterine in cephalic presentation. motion is identified by technologist. Placenta is noted posterofundally and grade 1 without evidence for placenta previa or abruption. Amniotic fluid volume is normal. Cervix measures 3.2 in length and appears closed.. Gestational age by current measurements 18 weeks 2 days with JJ 05/02/2020. FHR equals 155 beats per minute. BPD: 4.1 cm 18 weeks 3 days HC: 15.0 cm 18 weeks 0 days AC: 13.7 cm 19 weeks 1 day FL: 2.7 cm 18 weeks 2 days HL: 2.6 cm 18 weeks 2 days HC/AC: 1.09 Estimated weight 252 grams (77thpercentile). Anatomical assessment demonstrates normal structures including cranium, choroid plexus, cavum, cerebellum/posterior fossa, facial features, lungs, four-chamber heart/ventricular outflow tracts, diaphragm, stomach, cord insertion/three-vessel cord, kidneys/bladder, and extremities. Limited images of the sacral spine due to positioning noted. IMPRESSION: Single live intrauterine in cephalic presentation demonstrating appropriate estimated weight. Limited evaluation of the sacrum. Remainder of the anatomical assessment appears complete and normal. <Electronically signed by Jamison Taylor > 12/02/19 [id number]
== END ==
LOC: M WHC 12:32
PROVIDERS: ATTEND Advanced Practice Midwife
DX: Z36.9 Encounter for antenatal screening, unspecified (principal); Z3A.18 18 weeks gestation of pregnancy

== ENCOUNTER → 2019-12-28 | Outpatient (CLI) | payer OTHER ==
--- NOTE | 2019-12-29 04:18 | REP ---
INDICATION: F/U ANATOMY - SPINE COMPARISON: 12/02/2019 TECHNIQUE: Transabdominal obstetrical ultrasound with color Doppler evaluation. FINDINGS: Examination demonstrates a single live intrauterine in breech presentation. motion is identified by technologist. Placenta is noted anterofundal and grade 0 without evidence for placenta previa or abruption. Amniotic fluid volume is normal. Cervix measures 3.1 cm in length and appears closed.. Gestational age by LMP 21 weeks 4 days with JJ 05/05/2020. Gestational age by current measurements 21 weeks 4 days with JJ 05/05/2020. FHR equals 121 beats per minute. Estimated weight 431 grams (41stpercentile). Anatomical assessment demonstrates normal structures including visualization of the spine. IMPRESSION: Single live intrauterine demonstrating appropriate interval growth. In conjunction with prior examination anatomical assessment is complete and normal. <Electronically signed by Jamison Taylor > 12/29/19 041
== END ==
LOC: M WHC 13:05
PROVIDERS: ATTEND Advanced Practice Midwife
DX: O34.219 Maternal care for unspecified type scar from previous cesarean delivery (principal); Z3A.21 21 weeks gestation of pregnancy

== ENCOUNTER → 2020-03-09 | Outpatient (REF) | payer OTHER | LOC: M PLALAB 13:59 | PROVIDERS: ATTEND Specialist | DX: Z00.00 Encounter for general adult medical examination without abnormal findings (principal) ==

== ENCOUNTER → 2020-03-14 | Outpatient (REF) | payer OTHER ==
[2020-03-14 18:11] LABS: HEMATOCRIT 31.5 % (36.0-47.0); MEAN CORPUSCULAR HEMOGLOBIN 30.9 pg (27.0-33.0); MEAN CORPUSCULAR HGB CONC 31.7 g/dl (32.0-36.5); MEAN CORPUSCULAR VOLUME 97.2 fl (80.0-96.0); PLATELET COUNT, AUTOMATED 345 10^3/uL (150-450); RED BLOOD COUNT 3.24 10^6/uL (4.00-5.40); WHITE BLOOD COUNT 16.3 10^3/uL (4.0-10.0)
== END ==
LOC: M PLALAB 13:46
PROVIDERS: ATTEND Specialist
DX: Z34.90 Encounter for supervision of normal pregnancy, unspecified, unspecified trimester (principal); Z3A.00 Weeks of gestation of pregnancy not specified

== ENCOUNTER → 2020-04-06 | Outpatient (REF) | payer OTHER | LOC: M PLALAB 10:21 | PROVIDERS: ATTEND Obstetrics & Gynecology | DX: Z34.93 Encounter for supervision of normal pregnancy, unspecified, third trimester (principal); Z3A.35 35 weeks gestation of pregnancy ==

== ENCOUNTER 2020-04-13 03:28 | Inpatient (IN) | payer OTHER ==
[2020-04-13] VITALS (7 sets, daily range): BP systolic 98–156; BP diastolic 54–81
[~2020-04-13] VITALS: Ht 157.5 cm; Wt 65.0 kg
[2020-04-13] MEDS ORDERED: LACTATED RINGER'S 1000 ML IV STA (03:53)
[2020-04-13] MEDS ORDERED: LR 1,000 ML IV SCH ×3 (03:53→05:39)
[2020-04-13] MEDS ORDERED: ceFAZolin SOD 2 GM in IV 1 EA IV ONE (03:55)
[2020-04-13] MEDS ORDERED: BICITRA 30ML SOLN UDC PO ONE (03:55)
[2020-04-13] MEDS ORDERED: BICITRA 30ML SOLN UDC As Ordered ONE (04:05)
[2020-04-13] MEDS ORDERED: ceFAZolin 2 GM/D5W 50 ML IV BAG (J0690 PER 500MG) As Ordered ONE (04:05)
[2020-04-13 04:07] LABS: HEMATOCRIT 31.7 % (36.0-47.0); MEAN CORPUSCULAR HEMOGLOBIN 29.4 pg (27.0-33.0); MEAN CORPUSCULAR HGB CONC 31.5 g/dl (32.0-36.5); MEAN CORPUSCULAR VOLUME 93.2 fl (80.0-96.0); PLATELET COUNT, AUTOMATED 363 10^3/uL (150-450); WHITE BLOOD COUNT 14.3 10^3/uL (4.0-10.0)
[2020-04-13] MEDS ORDERED: MORPHINE PRES-FREE INJ 10 MG/10 ML VIAL (J2274) As Ordered ONE (04:09)
[2020-04-13] MEDS ORDERED: NALOXONE INJ 0.4MG/1ML VIAL (J2310 PER 1MG) IV PRN ×2 (04:16)
[2020-04-13] MEDS ORDERED: METOCLOPRAMIDE INJ 10MG/2ML VIAL (J2765 PER 1) IV PRN ×2 (04:16→05:30)
[2020-04-13] MEDS ORDERED: NALBUPHINE HCL 10 MG/ML AMP (J2300) IV PRN (04:16)
[2020-04-13] MEDS ORDERED: ONDANSETRON 4MG/2ML VIAL IV PRN ×3 (04:16→05:40)
[2020-04-13 04:37] LABS: CORD GAS ABE V -3.1; CORD GAS HCO3 V 24.4 MEQ/L; CORD GAS O2 SAT V 65.1 %; CORD GAS PCO2 V 51.6 mmHg; CORD GAS PH V 7.292 UNITS; CORD GAS PO2 V 24.7 mmHg
[2020-04-13 04:38] LABS: CORD GAS ABE A -3.1; CORD GAS HCO3 A 26.6 MEQ/L; CORD GAS O2 SAT A 36.3 %; CORD GAS PCO2 A 65.8 mmHg; CORD GAS PH A 7.225 UNITS; CORD GAS SBC A 20.2 MEQ/L; CORD GAS TCO2 A 28.6 MEQ/L
[2020-04-13] MEDS ORDERED: METOCLOPRAMIDE INJ 10MG/2ML VIAL (J2765 PER 1) As Ordered ONE (04:39)
[2020-04-13] MEDS ORDERED: ONDANSETRON 4MG/2ML VIAL As Ordered ONE (04:39)
[2020-04-13] MEDS ORDERED: PHENYLephrine 500MCG 5ML (100MCG/ML) SYRINGE As Ordered ONE (04:44)
[2020-04-13] MEDS ORDERED: propofoL 200 MG/20 ML VIAL As Ordered ONE (04:44)
[2020-04-13] MEDS ORDERED: ePHEDrine SULFATE 25 MG/5 ML(5MG/ML) SYRINGE As Ordered ONE (04:44)
[2020-04-13] MEDS ORDERED: LIDOCAINE 2% 100MG/5ML SDV (FOR ANES.) As Ordered ONE (04:44)
[2020-04-13] MEDS ORDERED: KETOROLAC 60MG 2ML VIAL As Ordered ONE (04:53)
[2020-04-13] MEDS ORDERED: fentaNYL 100 MCG/2 ML INJECTION (J3010) As Ordered ONE (04:56)
[2020-04-13] MEDS ORDERED: PERCOCET 5MG/325MG TAB PO PRN ×2 (05:30→05:40)
[2020-04-13] MEDS ORDERED: fentaNYL 100 MCG/2 ML INJECTION (J3010) IV PRN (05:30)
[2020-04-13] MEDS ORDERED: OXYTOCIN 30 UNITS IN 0.9% NaCl 500ML IV BAG (J2590) As Ordered ONE (05:38)
[2020-04-13] MEDS ORDERED: OXYTOCIN DRIP 30 UNITS in IV 1 EA IV SCH (05:39)
[2020-04-13] MEDS ORDERED: METHYLERGONOVINE MALEATE 0.2 MG/ML VIAL (J2210) IM ONE (05:40)
[2020-04-13] MEDS ORDERED: RHOGAM 300 MCG (1500 IU) INJ (J2790) IM SCH (05:40)
[2020-04-13] MEDS ORDERED: MEASLES,MUMPS,RUBELLA VACCINE INJ (MMR-II) (90707) SC SCH (05:40)
[2020-04-13] MEDS ORDERED: SIMETHICONE 80MG CHEW TAB PO PRN (05:40)
[2020-04-13] MEDS ORDERED: DOK1CAP7 PO (05:55)
[2020-04-13] MEDS ORDERED: IBUP80TA PO (05:55)
[2020-04-13] MEDS ORDERED: PERCOCET PO (05:55)
--- NOTE | 2020-04-13 07:17 | RO ---
OPERATIVE NOTE DATE OF OPERATION: 04/13/2020 PREOPERATIVE DIAGNOSIS: 36 weeks, 6 days, goss intrauterine , active labor with history of two prior sections, desiring repeat, category 2 heart rate tracing. POSTOPERATIVE DIAGNOSIS: 36 weeks, 6 days, goss intrauterine , active labor with history of two prior sections, desiring repeat, category 2 heart rate tracing. PROCEDURE: Repeat low transverse section. SURGEON: Jenna Duval MD MANAGEMENT TRAINEE PROGRAM STORES: Nicolás Bowling MD ANESTHESIA: spinal INDICATION FOR OPERATION: Jacinta is a 30-year-old, G3, now P 2-1-0-3, who presented to labor and delivery in active labor 6 cm, 80% effaced, minus 2 station with bulging bag, having a history of two prior sections. It was planned for her to undergo a repeat section at 39 weeks. On presentation, she had a category 2 heart rate tracing initially with minimal variability and absent accels and while we were opening the operating room, she had a deep heart rate decel down to the 80s that came back up slowly. Her history is also significant for a hemorrhage that occurred after her first section and she required a blood transfusion for that. MATERIAL FORWARDED TO THE LAB FOR EXAMINATION: Cord gases. DESCRIPTION OF FINDINGS: Male in OT presentation, Apgars 7 and 8, weight 3090 gm or 6 lb, 13 oz. Normal appearing uterus, fallopian tubes and ovaries. INFECTION CLASSIFICATION: 2. ESTIMATED BLOOD LOSS: 500 mL IV FLUIDS: 1300 mL of lactated Ringer's. URINE OUTPUT: 100 mL of clear yellow urine. DESCRIPTION OF PROCEDURE: After obtaining informed consent, the patient was taken to the operating room. Doptones in the OR were in the 140s. She had spinal anesthesia administered and a Valle catheter and bilateral sequential compression devices were placed. She was prepped and draped. We used Betadine rather than regular prep given the recent history of the heart rate deceleration prior to going back to the OR. A timeout was performed to confirm patient name, date of , procedure and indication. The team was in agreement. She received two grams of IV Ancef prophylactically. Spinal anesthesia was found to be adequate using an Allis clamp. A Pfannenstiel skin incision was made with the scalpel and carried through to the underlying layer of fascia using Bovie cautery. The fascia was incised in the midline and the incision was extended laterally with Calvin scissors. Superior and inferior aspects of the fascial incision were grasped with Anthony clamps, elevated and the underlying rectus muscles were dissected off bluntly and sharply. The peritoneum was entered digitally and the rectus muscles were in the midline. The peritoneal incision was extended superiorly and inferiorly with good visualization of the bladder. A Mobius retractor was inserted. The lower uterine segment was scored in a transverse fashion with a scalpel. The uterus was entered bluntly and the incision was extended with traction. It appeared suspicious for light meconium on entry into the amniotic sac. However, there was a very large amount of amniotic fluid. The 's head was elevated to the level of the incision, fundal pressure was applied and the head was delivered atraumatically in the OT position. Anterior shoulder, posterior shoulder and corpus were delivered without difficulty. Nose and mouth were suctioned with bulb suction. Cord was clamped x2 and cut. The infant was handed off to the awaiting team. Cord gases were obtained. The pH arterial was 7.225 with base excess negative 3.1. Venous pH was 7.292 with base excess of negative 3.1. The placenta was removed manually. The uterus was left in situ and cleared of all clot and debris. The uterine incision was repaired with 0 Vicryl suture in a running locking fashion. A second layer of 0 Monocryl was used to close the hysterotomy incision in imbricating fashion. The uterine incision was inspected. Hemostasis was noted. The gutters were cleared of clot. The peritoneum was closed using 3-0 Vicryl suture in a running fashion after the Mobius retractor was removed. The rectus muscles were reapproximated with [id number]-[id number] stitches using 3-0 Vicryl suture. The fascia was reapproximated using 0 Vicryl suture in a running fashion. Subcutaneous tissue was copiously irrigated. Tye's fascia was reapproximated using 3-0 Vicryl suture in a running fashion. Skin edges were reapproximated using three inverted interrupted stitches using 3-0 Vicryl suture followed by a running subcuticular stitch using 4-0 Monocryl suture. The incision was cleaned using a wet lap, dried with a dry lap. Steri-Strips were applied in the usual fashion perpendicular to the Pfannenstiel incision and Optifoam dressing was placed overlying. The surgical drapes were removed. The vagina was cleared of all blood clot without active bleeding noted. The fundus was firm at U minus 2 cm. All counts were correct x2. She received 0.2 mg of IM Methergine as well as 800 mcg of Cytotec were placed rectally after the surgery as prophylaxis against any bleeding postoperatively given her history of a prior hemorrhage. The procedure was without complications. The patient tolerated the procedure well. She was taken to the recovery room on labor and delivery in stable condition. SUNSHINE
[2020-04-13] MEDS: DOCUSATE SODIUM 100MG CAPSULE PO SCH ×2 (09:00→20:42)
[2020-04-13] MEDS: PRENATAL VITAMINS CHEWABLE TABLET PO SCH (09:00)
[2020-04-13] MEDS: diphenhydrAMINE 50MG/ML VIAL (J1200) IV PRN ×2 (10:02→20:42)
[2020-04-13] MEDS: KETOROLAC 30 MG/ML 1ML VIAL IV SCH ×3 (11:50→23:30)
[2020-04-13] MEDS: PERCOCET 5MG/325MG TAB PO PRN (21:03)
[2020-04-14] VITALS (7 sets, daily range): BP systolic 106–135; BP diastolic 51–62
--- NOTE | 2020-04-14 04:49 | IPNPDOC ---
Progress Note Date of Service: Apr 14, 2020 Day#: 1 Progress Note SUBJECT: Jacinta is a 30-year-old female who is 36.6 weeks gestation that had a repeat section yesterday morning. She came into L&D in active labor at 6 cm/80%. She has been ambulating, voiding spontaneously without issue and tolerating regular diet. Formula feeding. OBJECTIVE: VITAL SIGNS: Within normal limits, afebrile. Alert and oriented times three. Breath sounds clear to auscultation. Abdomen: Fundus firm at U-2. Soft, NTTP. Minimal lochia. ASSESSMENT: Day 1 postoperative PLAN: 1. Continue supportive nursing care. 2. Continue pain management regimen. 3. Patient may shower today. 4. Patient to ambulate today 5. Anticipate discharge tomorrow. VS, I&O, 24H, Fishbone Vital Signs/I&O Vital Signs Date Time Temp Pulse Resp B/P (MAP) Pulse Ox O2 Delivery O2 Flow Rate FiO2 04/14/20 02:00 98.5 52 16 115/57 (76) 100 Room Air I&O- Last 24 Hours up to 6 AM 04/14/20 06:00 Intake Total 135 ml Output Total 2925 ml Balance -2790 ml BOOKER RIZVI CNM Apr 14, 2020 04:49
[2020-04-14 06:39] LABS: HEMATOCRIT 27.5 % (36.0-47.0); HEMOGLOBIN 8.6 g/dl (12.0-15.5); MEAN CORPUSCULAR HEMOGLOBIN 29.3 pg (27.0-33.0); MEAN CORPUSCULAR HGB CONC 31.3 g/dl (32.0-36.5); MEAN CORPUSCULAR VOLUME 93.5 fl (80.0-96.0); PLATELET COUNT, AUTOMATED 329 10^3/uL (150-450); RED BLOOD COUNT 2.94 10^6/uL (4.00-5.40); WHITE BLOOD COUNT 12.5 10^3/uL (4.0-10.0)
[2020-04-14] MEDS: PERCOCET 5MG/325MG TAB PO PRN ×3 (07:40→20:06)
[2020-04-14] MEDS: IBUPROFEN 800 MG TAB PO SCH ×3 (07:51→23:36)
[2020-04-14] MEDS: PRENATAL VITAMINS CHEWABLE TABLET PO SCH (07:52)
[2020-04-14] MEDS: SERTRALINE 100 MG TAB PO SCH (07:52)
[2020-04-14] MEDS: DOCUSATE SODIUM 100MG CAPSULE PO SCH ×2 (07:53→20:06)
[2020-04-15 02:00] VITALS: BP 121/67
[2020-04-15] MEDS: PERCOCET 5MG/325MG TAB PO PRN ×2 (02:16→07:41)
[2020-04-15 05:54] VITALS: BP 135/85
--- NOTE | 2020-04-15 06:41 | DS.PDOC ---
Discharge Summary General Date of Admission Apr 13, 2020 at 03:46 Date of Discharge April 15, 2020 Discharge Summary PROCEDURES PERFORMED DURING STAY: repeat . ADMITTING DIAGNOSES: 1. 36 6/7 weeks, labor, prior x 2. DISCHARGE DIAGNOSES: 1. same. COMPLICATIONS/CHIEF COMPLAINT: Labor Check, Prior C/S. HISTORY OF PRESENT ILLNESS: 30 yo female at 36 6/7 weeks gestation presents with regular contractions. HOSPITAL COURSE: Pt was admitted after evaluation found her to be 6 cm dilated. She has a h/o two prior sections. She was planning a repeat . A category II heart rate tracing was noted. She proceeded to the OR where a repeat section was performed. Her post-operative course was unremarkable. Her post-op hemoglobin was 8.6 g/dl. She had adequate return of bladder and bowel function. She was stable for discharge on POD#2. DISCHARGE MEDICATIONS: Please see below. ALLERGIES: Please see below. PHYSICAL EXAMINATION ON DISCHARGE: VITAL SIGNS: Please see below. GENERAL: wnl HEENT: wnl CARDIOVASCULAR EXAMINATION: RRR RESPIRATORY EXAMINATION: cta ABDOMINAL EXAMINATION: NT, dressing C/D/I EXTREMITIES: NT LABORATORY DATA: Please see below. PROGNOSIS: good ACTIVITY: As tolerated. DIET: reg DISCHARGE PLAN: home DISPOSITION: . DISCHARGE INSTRUCTIONS: 1. instructions reviewed 2.remove dressing day#5. DISCHARGE CONDITION:Stable. TIME SPENT ON DISCHARGE: Greater than 10 minutes. Vital Signs/I&Os Vital Signs Date Time Temp Pulse Resp B/P (MAP) Pulse Ox O2 Delivery O2 Flow Rate FiO2 04/15/20 05:54 98.4 60 16 135/85 (102) 98 Room Air Discharge Medications Scheduled Docusate Sodium (Dok) 100 Mg Capsule, 100 MG PO BID Ibuprofen (Ibuprofen) 800 Mg Tablet, 800 MG PO Q8H Pnv No.95/Ferrous Fum/Folic AC ( Vitamin Tablet) 1 Each Tablet, 1 TAB PO DAILY, (Reported) Scheduled PRN Oxycodone/Acetaminophen (Oxycodone-Acetaminophen 5-325) 1 Each Tablet, 1 TAB PO Q4H PRN for MILD/MODERATE PAIN (PS 1-7) Allergies Coded Allergies: POLLEN (Verified Allergy, Mild, 07/01/17) POLLEN, DUST & DOGS MAE MACHADO MD Apr 15, 2020 06:41
[2020-04-15] MEDS: DOCUSATE SODIUM 100MG CAPSULE PO SCH (08:45)
[2020-04-15] MEDS: PRENATAL VITAMINS CHEWABLE TABLET PO SCH (08:45)
[2020-04-15] MEDS: SERTRALINE 100 MG TAB PO SCH (08:45)
== END 2020-04-15 10:20 | disposition home or self-care (01) | DRG 540 ==
LOC: M LDO 03:28 → M LDI 03:46 → M OBS 06:50
PROVIDERS: ADMIT Obstetrics & Gynecology; ATTEND Obstetrics & Gynecology
PROC: 10D00Z1 Extraction of Products of Conception, Low, Open Approach (ICD-10-PCS; principal; 2020-04-13 04:45)
DX: O34.211 Maternal care for low transverse scar from previous cesarean delivery (principal); Z3A.36 36 weeks gestation of pregnancy; Z37.0 Single live birth; O76 Abnormality in fetal heart rate and rhythm complicating labor and delivery; O75.89 Other specified complications of labor and delivery; O77.0 Labor and delivery complicated by meconium in amniotic fluid

== ENCOUNTER → 2020-08-26 | Outpatient (CLI) | payer OTHER ==
[~2020-08-26] MED LIST changes: +DOK1CAP7 PO
[2020-08-26 14:30] LABS: BASO # 0.1 10^3/uL (0.0-0.2); BASO % 0.6 % (0.0-1.0); EOS # 0.1 10^3/uL (0.0-0.5); EOS % 1.2 % (0.0-3.0); HEMATOCRIT 42.5 % (36.0-47.0); HEMOGLOBIN 13.3 g/dl (12.0-15.5); LYMPH # 3.1 10^3/uL (1.5-5.0); LYMPH % 29.9 % (24.0-44.0); MEAN CORPUSCULAR HEMOGLOBIN 29.6 pg (27.0-33.0); MEAN CORPUSCULAR HGB CONC 31.3 g/dl (32.0-36.5); MEAN CORPUSCULAR VOLUME 94.4 fl (80.0-96.0); MONO # 0.5 10^3/uL (0.0-0.8); NEUTROPHILS # 6.5 10^3/uL (1.5-8.5); NEUTROPHILS % 62.9 % (36.0-66.0); PLATELET COUNT, AUTOMATED 295 10^3/uL (150-450); WHITE BLOOD COUNT 10.3 10^3/uL (4.0-10.0)
[2020-08-26 14:50] LABS: ERYTHROCYTE SEDIMENTATION RATE 6 mm/hr (0-20)
[2020-08-26 22:29] LABS: ALT/SGPT 15 U/L (12-78); BILIRUBIN,TOTAL 0.4 MG/DL (0.2-1.0); BLOOD UREA NITROGEN 11 MG/DL (7-18); CALCIUM LEVEL 9.2 MG/DL (8.5-10.1); CARBON DIOXIDE LEVEL 25 MEQ/L (21-32); CHLORIDE LEVEL 108 MEQ/L (98-107); CREATININE FOR GFR 0.71 MG/DL (0.55-1.30); FOLATE 10.4 NG/ML; FREE T4 0.84 NG/DL (0.76-1.46); GLOMERULAR FILTRATION RATE > 60.0 (>60); GLUCOSE, FASTING 91 MG/DL (70-100); POTASSIUM SERUM 4.6 MEQ/L (3.5-5.1); RHEUMATOID FACTOR QUANT < 10.0 IU/ML (<15.0); SODIUM LEVEL 140 MEQ/L (136-145); THYROID STIMULATING HORMONE 0.797 uIU/ML (0.358-3.740); TOTAL PROTEIN 7.2 GM/DL (6.4-8.2); VITAMIN B12 LEVEL 389 PG/ML
== END ==
LOC: M LAB 13:29
PROVIDERS: ATTEND Nurse Practitioner Family
DX: M79.10 Myalgia, unspecified site (principal); R53.83 Other fatigue

== ENCOUNTER → 2020-10-21 | Outpatient (CLI) | payer OTHER ==
[~2020-10-21] MED LIST changes: +DOK1CAP4 PO; -DOK1CAP7 PO
--- NOTE | 2020-10-21 11:33 | REP ---
INDICATION: PAIN AND SWELLING IN LEFT MIDDLE FINGER COMPARISON: None. TECHNIQUE: Four views left hand. FINDINGS: There is no evidence of acute fracture, dislocation, or intrinsic bone disease.The joint spaces appear normal. There is mild soft tissue swelling in the region of the 3rd proximal interphalangeal joint. IMPRESSION: Mild soft tissue swelling in the region of the 3rd proximal interphalangeal joint. No osseous abnormality. <Electronically signed by Steve Chase > 10/21/20 [id number]
== END ==
LOC: M ADAMS 10:30
PROVIDERS: ATTEND Nurse Practitioner Family
DX: M79.645 Pain in left finger(s) (principal)

== ENCOUNTER → 2020-10-29 | Outpatient (CLI) | payer OTHER | LOC: M LABSMTC 11:34 | PROVIDERS: ATTEND Family Medicine | DX: Z20.828 Contact with and (suspected) exposure to other viral communicable diseases (principal); Z11.59 Encounter for screening for other viral diseases | CPT/HCPCS: C9803; U0003 ==

== ENCOUNTER → 2021-01-02 | Outpatient (REF) | payer OTHER | LOC: M LAB REF 17:13 | PROVIDERS: ATTEND Nurse Practitioner Family | DX: Z12.4 Encounter for screening for malignant neoplasm of cervix (principal) ==